=== PATIENT | female | born 1940 | race Caucasian/White ===

== ENCOUNTER 2017-07-29 12:42 | Emergency (ER) | payer OTHER, MEDICARE ==
[~2017-07-29] VITALS: Ht 162.6 cm; Wt 56.7 kg
--- NOTE | 2017-07-29 14:06 | RADIOLOGY REPORT ---
EXAMINATION: XR WRIST, LEFT XR HAND, LEFT CLINICAL INFORMATION: Fall with left wrist and hand pain. Evaluate for fracture. COMPARISON: None TECHNIQUE: PA, oblique, lateral, and scaphoid views of the left wrist are obtained. PA, oblique, and lateral views of the left hand are obtained. FINDINGS: LEFT WRIST: There is an irregular corticated ossification adjacent to an irregular osteophyte of the radial styloid. This may be degenerative or an old ununited avulsion fracture. There is a fracture of the proximal pole of the scaphoid with mild radial displacement of the distal fracture fragment. The proximal pole is sclerotic and atrophied. The appearance suggests an old fracture nonunion. There is additional patchy sclerosis and cystic change in the mid scaphoid. There is irregularity of the articular surfaces at the radioscaphoid articulation. There are mild degenerative changes of the triscaphe and 1st CMC joints. LEFT HAND: There is no acute fracture or malalignment. There are mild degenerative changes of essentially all of the IP joints of the left hand with small marginal osteophytes and some areas of mild joint space narrowing. There are minimal degenerative changes of a few MCP joints. IMPRESSION: LEFT WRIST: Ossific fragment adjacent to hypertrophic spurring of the radial styloid which may be degenerative or an old avulsion fracture. 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 Mild degenerative changes of the triscaphe and 1st CMC joints. LEFT HAND: No acute fracture. Mild degenerative changes of all of the IP joints of the left hand and minimal degenerative changes of a few MCP joints.
--- NOTE | 2017-07-29 14:14 | ED HAND/WRIST INJURY COMPLAINT ---
History of Present Illness General Chief Complaint: Hand or Wrist Injury Stated Complaint: L HAND PAIN Source: patient, old records Exam Limitations: no limitations Vital Signs & Intake/Output Vital Signs & Intake/Output Vital Signs Date Time Temp Pulse Resp B/P B/P Pulse O2 O2 Flow FiO2 Mean Ox Delivery Rate 07/29 1429 97.0 88 20 140/80 98 Room Air 07/29 1246 96.2 89 18 200/83 98 Room Air Room Air Allergies Coded Allergies: MDX - Codeine (CODEINE) (unknown 08/02/14) Triage Note: TRIAGE: 76 Y/O FEMALE PRESENTS C/O 02/04 LEFT HAND PAIN SINCE THIS MORNING. * DOES NOT HAVE A PCP - WISHES TO HAVE A PCP REFERRAL AFTER TODAY'S VISIT. * DECLINES TYLENOL/ MOTRIN IN TRIAGE. Triage Nurses Notes Reviewed? yes HPI: Patient woke up this morning and noticed pain in her left wrist. No known trauma. The pain increases when she goes to make a fist or when she bends her wrist. The pain radiates up into her forearm. There is no swelling. The pain is throbbing in nature. She rates the pain at 6 out of 10. Patient denies any other injury. There is no numbness or tingling in her fingers. Past History Travel History Traveled to [place] past 21 day No Medical History Any Pertinent Medical History? see below for history Neurological: NONE EENT: NONE Cardiovascular: NONE Respiratory: NONE Gastrointestinal: NONE Hepatic: NONE Renal: NONE Musculoskeletal: NONE Psychiatric: NONE Endocrine: NONE Blood Disorders: NONE Cancer(s): RECTAL CANCER CERVICAL CANCER Surgical History Surgical History: non-contributory Psychosocial History What is your primary language Nepali Tobacco Use: Current Daily Use Daily Tobacco Use Amount/Type: => 5 Cigarettes daily ETOH Use: denies use Illicit Drug Use: denies illicit drug use Family History Hx Contributory? No Review of Systems Review of Systems Constitutional: Reports: no symptoms. Respiratory: Reports: no symptoms. Cardiovascular: Reports: no symptoms. Musculoskeletal: Reports: see HPI, joint pain. Neurological/Psychological: Reports: no symptoms. Immunologic/Allergic: Reports: no symptoms. Physical Exam Physical Exam General Appearance: well developed/nourished, alert, awake, anxious, mild distress Eyes: Bilateral: PERRL, EOMI. Cardiovascular/Respiratory: normal breath sounds, normal peripheral pulses, regular rate/rhythm, no respiratory distress Wrist Left: pain, soft tissue tenderness Wrist Right: normal range of motion, normal inspection Hand Left: normal inspection, normal range of motion Hand Right: normal inspection, normal range of motion Neurologic/Tendon: normal sensation, normal motor functions, normal tendon functions Lymphatic: no anterior cervical stuart Progress Differential Diagnosis: contusion, fracture, gout, sprain, tenosynovitis Plan of Care: Orders Procedure Date/time Status Durable Medical Equipment 07/29 1426 Active Diagnostic Imaging: Viewed by Me: Radiology Read. Discussed w/RAD: Radiology Read. Radiology Impression: SEE REPORT: OLD FX Departure Departure Disposition: HOME OR SELF CARE Condition: Stable Clinical Impression Primary Impression: Left wrist sprain Referrals: Arthur GRAY,[place] Patient Has No Primary Care Dr (PCP/Family) Additional Instructions: WEAR SPLINT FOR COMFORT FOLLOW UP WITH DR. ROMAN RETURN FOR ANY CONCERNS Departure Forms: Customer Survey General Discharge Information Procedures Splinting Location: LEFT WRIST Manual Alignment Performed: No Pre-Made Type: velcro Splint: wrist Splint Applied By: splint applied by me Pre-Proc Neuro Vasc Exam: normal Post-Proc Neuro Vasc Exam: normal
[2017-07-29 14:29] VITALS: BP 140/80
== END 2017-07-29 14:29 ==
LOC: ERH 12:42
DX: S63.502A Unspecified sprain of left wrist, initial encounter (principal); X58.XXXA Exposure to other specified factors, initial encounter; Y92.9 Unspecified place or not applicable; Y93.9 Activity, unspecified
CPT/HCPCS: 73110-LT; 73130-LT